=== PATIENT | female | born 1965 | race African-American/Black ===

== ENCOUNTER 2017-06-28 08:11 | Emergency (ER) | payer BC ==
[2017-06-28 08:19] VITALS: BP 133/85; PULSE 84; TEMP 98.6; BMI 30.2
[2017-06-28] MEDS ORDERED: KETOROLAC TROMETHAMINE 60 MG/2 ML VIAL IM ONE (08:55)
--- NOTE | 2017-06-28 08:55 | PDOC ---
History of Present Illness - General Chief Complaint: Pain Stated Complaint: LOWER BACK PAIN Time Seen by Provider: 06/28/17 08:33 History Source: Patient Exam Limitations: No Limitations - History of Present Illness Initial Comments: 06/28/17 17:08 Here with progressive worsening of thoracic pain. States had a severe fall with multiple spinal and cervical spine problems 3-4 years ago which has left her on disability. States thoracic pain and feels is primarily musculature has progressively worsened over the past few days. Has taken no medication for relief, is not involved with pain management although see his physician who is prescribed antispasmodics and anti-inflammatories. Patient is reluctant to take narcotics as she feels they make her very sick to her stomach and dizzy. Denies any recent injury, denies any heavy lifting or strenuous activity, denies any fever or URI or any other illness recently. Has not spoken to her doctor about this worsened pain. Occurred: reports: other (over 4 years ) Severity: reports: mild, moderate Method of Injury: Yes: unknown, fall Modifying Factors: improves with: pain medication Loss of Consciousness: no loss of consciousness Associated Symptoms (Fall): denies symptoms Past History - Travel Traveled outside of the country in the last 30 days: No Close contact w/someone who was outside of country & ill: No - Past Medical History Allergies/Adverse Reactions: Allergies Allergy/AdvReac Type Severity Reaction Status Date / Time No Known Allergies Allergy Verified 06/28/17 08:19 Home Medications: Ambulatory Orders Metformin HCl [Glucophage] 1,000 mg PO BID 07/09/12 Lisinopril [Prinivil] 5 mg PO DAILY 06/18/13 Simvastatin [Zocor -] 40 mg PO HS 06/18/13 Azithromycin [Zithromax Z-ROBERTA (5 DAYS) -] 250 mg PO ASDIR #6 tablet 09/17/15 Benzonatate [Tessalon Pearls -] 100 mg PO TID PRN #12 capsule 09/17/15 Glyburide [Diabeta] 10 mg PO BID 09/17/15 Diabetes: Yes (TYPE 2) Hypercholesterolemia: Yes - Immunization History Immunization Up to Date: Yes - Psycho/Social/Smoking Cessation Hx Anxiety: No Suicidal Ideation: No Smoking Status: No Smoking History: Never smoked Number of Cigarettes Smoked Daily: 0 Cigars Per Day: 0 Hx Alcohol Use: No Drug/Substance Use Hx: No Substance Use Type: None Trauma Specific PMHX - Complaint Specific PMHX Back Injury: Yes Neck Injury: Yes Review of Systems - Review of Systems Able to Perform ROS?: Yes Is the patient limited Sami proficient: Yes Constitutional: Yes: Symptoms Reported, See HPI, Malaise HEENTM: Yes: Symptoms Reported Respiratory: Yes: See HPI. No: Symptoms reported Cardiac (ROS): No: Symptoms Reported ABD/GI: No: Symptoms Reported Musculoskeletal: Yes: Symptoms Reported, See HPI, Back Pain, Muscle Pain, Muscle Weakness Integumentary: No: Symptoms Reported Neurological: Yes: See HPI All Other Systems: Reviewed and Negative *Physical Exam - Vital Signs Last Vital Signs Temp Pulse Resp BP Pulse Ox 98.6 F 84 20 133/85 100 06/28/17 08:16 06/28/17 08:16 06/28/17 08:16 06/28/17 08:16 06/28/17 08:16 - Physical Exam General Appearance: Yes: Nourished, Appropriately Dressed, Apparent Distress, Mild Distress HEENT: positive: GIOVANNI, Normal ENT Inspection, TMs Normal Neck: positive: Tender, Supple Respiratory/Chest: positive: Lungs Clear Gastrointestinal/Abdominal: positive: Soft. negative: Tender Musculoskeletal: positive: Normal Inspection, Decreased Range of Motion. negative: CVA Tenderness, Muscle Spasm (tight tense muscle groups to left flank and paravertebral spine muscles of left side ), Vertebral Tenderness Extremity: positive: Normal Capillary Refill, Normal Inspection, Tender. negative: Normal Range of Motion Integumentary: positive: Normal Color, Dry, Warm, Pale Neurologic: positive: product expert II-XII NML intact, Fully Oriented, Alert, Normal Mood/ Affect, Normal Response, Motor Strength 5/5 Progress Note - Progress Note Progress Note: Chronic muscle strain/ spasm- will have continue Robaxin and Naprosyn as is helpful to pain. F/U with PMD/ possible PT *DC/Admit/Observation/Transfer Diagnosis at time of Disposition: Muscle ache - Discharge Dispostion Disposition: HOME Condition at time of disposition: Stable Admit: No - Referrals Referrals: Ivonne Thomas MD [Primary Care Provider] - - Patient Instructions Printed Discharge Instructions: DI for Back Strain or Sprain Additional Instructions: Rest, no heavy lifting or exercise until pain is resolved Hot soaks to neck and low back as often as possible/hot showers or Jacuzzis No massage or therapy until spasm is gone Then may explore alternative measures for pain relief including massage, acupuncture, acupressure, yoga, or physical therapies Continue Naprosyn 500 mg every 8 hours as needed for pain Continue Robaxin every 8 hours as needed for spasm If not significant improvement within 24 hours with medication and rest regime, followup with private physician for change in medications and /or therapy.
[2017-06-28] MEDS ORDERED: KETOROLAC TROMETHAMINE 60 MG/2 ML VIAL ONE (09:03)
== END 2017-06-28 09:23 | disposition home or self-care (01) ==
LOC: JERFT 08:11 → JER 08:11 → JERFT 09:23
PROC: 3E0233Z Introduction of Anti-inflammatory into Muscle, Percutaneous Approach (ICD-10-PCS; principal; 2017-06-28)
DX: M62.830 Muscle spasm of back (principal); G89.29 Other chronic pain; I10 Essential (primary) hypertension; Z79.84 Long term (current) use of oral hypoglycemic drugs; E78.00 Pure hypercholesterolemia, unspecified
CPT/HCPCS: 99281-25

== ENCOUNTER 2018-08-29 08:40 | Emergency (ER) | payer BC ==
[2018-08-29 08:44] VITALS: BP 149/74; PULSE 69; TEMP 98.3; BMI 29.7
[2018-08-29] MEDS ORDERED: KETOROLAC TROMETHAMINE 60 MG/2 ML VIAL IM ONE (09:13)
[2018-08-29] MEDS ORDERED: CYCLOBENZAPRINE HCL 10 MG TABLET (FP) PO ONE (09:13)
[2018-08-29] MEDS ORDERED: CYCLOBENZAPRINE HCL 10 MG TABLET (FP) ONE (09:23)
[2018-08-29] MEDS ORDERED: KETOROLAC TROMETHAMINE 60 MG/2 ML VIAL ONE (09:23)
--- NOTE | 2018-08-29 09:51 | PDOC ---
History of Present Illness - General Chief Complaint: Back Pain Stated Complaint: PAIN ON LT SIDE OF BODY Time Seen by Provider: 08/29/18 08:59 History Source: Patient Exam Limitations: Clinical Condition - History of Present Illness Initial Comments: 08/29/18 09:46 Patient with usual chronic back pains present with complaint of left lower back pain which has been worse in the past 4 days. Patient has been having back pain for 2 years and being managed by PCP with NSAIDs and muscle relaxant. Patient reports history of multiple falls in the past condescending herniated disc but has not been seen by a neurologist and only being managed by PCP. patient stopped taking naproxen because she report was affected her stomach and hasnt taken any NSAIDS for over 8 months Timing/Duration: getting worse Past History - Past Medical History Allergies/Adverse Reactions: Allergies Allergy/AdvReac Type Severity Reaction Status Date / Time No Known Allergies Allergy Verified 08/29/18 08:44 Home Medications: Ambulatory Orders metFORMIN HCL [Glucophage] 1,000 mg PO BID 07/09/12 Lisinopril [Prinivil] 5 mg PO DAILY 06/18/13 Simvastatin [Zocor -] 40 mg PO HS 06/18/13 Glyburide [Diabeta] 10 mg PO BID 09/17/15 Ketorolac Tromethamine [Toradol -] 10 mg PO TID PRN #21 tablet 08/29/18 Methocarbamol [Robaxin -] 500 mg PO TID PRN #21 tablet 08/29/18 COPD: No Diabetes: Yes (TYPE 2) Hypercholesterolemia: Yes Other medical history: chronic back problems, shoulder pain left side - Immunization History Immunization Up to Date: Yes - Suicide/Smoking/Psychosocial Hx Smoking Status: No Smoking History: Never smoked Number of Cigarettes Smoked Daily: 0 Cigars Per Day: 0 Hx Alcohol Use: No Drug/Substance Use Hx: No Substance Use Type: None Review of Systems - Review of Systems Able to Perform ROS?: Yes Is the patient limited Chinese proficient: No Constitutional: No: Weakness Respiratory: No: Symptoms reported Cardiac (ROS): No: Symptoms Reported ABD/GI: No: Symptoms Reported Musculoskeletal: Yes: See HPI, Back Pain (left lower back pain), Muscle Pain ( left lower back pain). No: Muscle Weakness All Other Systems: Reviewed and Negative *Physical Exam - Vital Signs Last Vital Signs Temp Pulse Resp BP Pulse Ox 98.3 F 69 18 149/74 100 08/29/18 08:42 08/29/18 08:42 08/29/18 08:42 08/29/18 08:42 08/29/18 08:42 - Physical Exam Comments: 08/29/18 09:52 GENERAL: Well developed, well nourished. Awake and alert. No acute distress. CARDIOVASCULAR: Regular rate and rhythm. No murmurs, rubs, or gallops. PULMONARY: No evidence of respiratory distress. Lungs clear to auscultation bilaterally. No wheezing, rales or rhonchi. ABDOMINAL: Soft. Non-tender. Non-distended. No rebound or guarding. No organomegaly. Normoactive bowel sounds MUSCULOSKELETAL : moderate tenderness over posterior paravertebral muscle on left lumbar spine. No bony deformities EXTREMITIES: No cyanosis. No clubbing. No edema. No calf tenderness. SKIN: Warm and dry. Normal capillary refill. No rashes. No jaundice. NEUROLOGICAL: Alert, awake, appropriate. No motor deficits in the lower extremities. Gait is normal without ataxia. PSYCHIATRIC: Cooperative. Good eye contact. Appropriate mood and affect. General Appearance: Yes: Nourished, Appropriately Dressed, Mild Distress ED Treatment Course - RADIOLOGY Radiology Studies Ordered: Category Date Time Status SPINE-LUMBAR SACRAL [RAD] Stat Radiology 08/29/18 09:12 Taken - Medications Given in the ED: ED Medications Discontinued Medications Generic Name Dose Route Start Last Admin Trade Name Freq PRN Reason Stop Dose Admin Cyclobenzaprine HCl 5 mg 08/29/18 09:13 08/29/18 09:38 Flexeril - PO 08/29/18 09:14 5 mg ONCE ONE Administration Ketorolac Tromethamine 60 mg 08/29/18 09:13 08/29/18 09:38 Toradol Injection - IM 08/29/18 09:14 60 mg ONCE ONE Administration Medical Decision Making - Medical Decision Making 08/29/18 09:53 Patient with history of chronic lower back pains presented with complaint of left lower back pain worsening in the last 4 days with any new trauma or injury. Toradol 60mg IM and cyclobenzaprine 5mg PO given for pain. x-ray of lumbosacral ordered 08/29/18 10:03 x-rays of lumbaosacral shows no acute pathology. Patient stable for discharge on NSAIDS and muscle relaxer with orthopedics and neurosurgery follow-up *DC/Admit/Observation/Transfer Diagnosis at time of Disposition: Lumbago Qualifiers: Chronicity: chronic Back pain laterality: left Sciatica presence: without sciatica Qualified Code(s): M54.5 - Low back pain; G89.29 - Other chronic pain - Discharge Dispostion Disposition: HOME Condition at time of disposition: Stable Decision to Admit order: No - Prescriptions Prescriptions: Ketorolac Tromethamine [Toradol -] 10 mg PO TID PRN #21 tablet PRN Reason: Back Pain Methocarbamol [Robaxin -] 500 mg PO TID PRN #21 tablet PRN Reason: Back Pain - Referrals Referrals: Gregory Sánchez MD, [facility] [Staff Physician] - Charla Camilo MD [Non Staff, Medical] - - Patient Instructions Printed Discharge Instructions: Managing Chronic Low Back Pain Additional Instructions: Your x-ray was negative. Follow-up referred neurology Dr. Armenta for chronic back pain. Follow referred physical therapist for back physical therapy - Post Discharge Activity
== END 2018-08-29 10:20 | disposition home or self-care (01) ==
LOC: JERFT 08:40
PROC: 3E0233Z Introduction of Anti-inflammatory into Muscle, Percutaneous Approach (ICD-10-PCS; principal; 2018-08-29)
DX: M54.5 Low back pain (principal); G89.29 Other chronic pain; E11.9 Type 2 diabetes mellitus without complications; Z79.84 Long term (current) use of oral hypoglycemic drugs; E78.00 Pure hypercholesterolemia, unspecified
CPT/HCPCS: 72100-TC-FY; 99281-25

== ENCOUNTER 2019-10-29 08:03 | Emergency (ER) | payer BC ==
[2019-10-29 08:11] VITALS: BP 132/80; PULSE 82; TEMP 98.1; BMI 29.9
[2019-10-29] MEDS ORDERED: ALBUTEROL SO4 2.5/IPRATROPIUM 0.5 INH SOL 3 ML VIAL.NEB. NEB ONE ×3 (08:29→08:31)
--- NOTE | 2019-10-29 08:32 | PDOC ---
History of Present Illness - General Chief Complaint: Cold Symptoms Stated Complaint: COUGHING Time Seen by Provider: 10/29/19 08:10 - History of Present Illness Initial Comments: 10/29/19 08:30 CHIEF COMPLAINT: cough HISTORY OF PRESENT ILLNESS: 54 yo F with hx of IDDM presents to [facility] with cough x 9 days. Patient reports that she has taken azithromycin (completed yesterday) and robitussin prescribed by her PCP Dr. Kathy Tavares without relief. Patient states she had a slight fever at her PCP office and that she has been nauseous, but denies any vomiting or diarrhea. No recent travel or sick contacts. PAST MEDICAL HISTORY: Denies past medical history FAMILY HISTORY: Denies SOCIAL HISTORY: Denies tobacco, alcohol, illicit drug use. SURGICAL HISTORY: Denies ALLERGIES: No known drug allergies REVIEW OF SYSTEMS General/Constitutional: Fever. Denies weakness, weight change. HEENT: Denies change in vision. Denies ear pain or discharge. Denies sore throat. Cardiovascular: Denies chest pain or shortness of breath. Respiratory: Cough x 9 days. Gastrointestinal: Denies nausea, vomiting, diarrhea or constipation. Denies rectal bleeding. Genitourinary: Denies dysuria, frequency, or change in urination. Musculoskeletal: Denies joint or muscle swelling or pain. Denies neck or back pain. Skin and breasts: Denies rash or easy bruising. Neurologic: Denies headache, vertigo, loss of consciousness, or loss of sensation. Psychiatric: Denies depression or anxiety. PHYSICAL EXAM General Appearance: Well-appearing, appropriately dressed. No apparent distress. HEENT: EOMI, PERRLA, normal ENT inspection, normal voice, TMs normal, pharynx normal. No conjunctival pallor. No photophobia, scleral icterus. Neck: Supple. Trachea midline. No tenderness, rigidity, carotid bruit, stridor , lymphadenopathy, or thyromegaly. Respiratory/Chest: Acute bronchospasm. No shortness of breath, chest tenderness , respiratory distress, accessory muscle use. No crackles, rales, rhonchi, stridor, wheezing, dullness Cardiovascular: RRR. S1, S2. No JVD, murmur, bradycardia, tachycardia. Vascular Pulses: Dorsalis-Pedis (R): 2+, Dorsalis-Pedis (L): 2+ Gastrointestinal/Abdominal: Normal bowel sounds. Abdomen soft, non-distended. No tenderness or rebound tenderness. No organomegaly, pulsatile mass, guarding , hernia, hepatomegaly, splenomegaly. Musculoskeletal/Extremities: Normal inspection. FROM of all extremities, normal capillary refill. Pelvis Stable. No CVA tenderness. No tenderness to extremities, pedal edema, swelling, erythema or deformity. Integumentary: Appropriate color, dry, warm. No cyanosis, erythema, jaundice or rash Neurologic: conservator artifacts II-XII intact. Fully oriented, alert. Appropriate mood/affect. Motor strength 5/5. No appreciable EOM palsy, facial droop or sensory deficit. Past History - Past Medical History Allergies/Adverse Reactions: Allergies Allergy/AdvReac Type Severity Reaction Status Date / Time No Known Allergies Allergy Verified 08/29/18 08:44 Home Medications: Ambulatory Orders metFORMIN HCL [Glucophage] 1,000 mg PO BID 07/09/12 Glyburide [Diabeta] 10 mg PO BID 09/17/15 Albuterol Sulfate Inhaler - [Ventolin HFA Inhaler -] 1 - 2 inh PO Q6H PRN #1 inhaler 10/29/19 Benzonatate [Tessalon Pearls -] 100 mg PO TID #21 capsule 10/29/19 Cyclobenzaprine HCl 10 mg PO HS 10/29/19 Nateglinide 120 mg PO TID 10/29/19 predniSONE [Deltasone -] 40 mg PO DAILY #8 tablet 10/29/19 COPD: No Diabetes: Yes (TYPE 2) Hypercholesterolemia: Yes - Immunization History Immunization Up to Date: Yes - Psycho Social/Smoking Cessation Hx Smoking Status: No Smoking History: Never smoked Have you smoked in the past 12 months: No Number of Cigarettes Smoked Daily: 0 Cigars Per Day: 0 Information on smoking cessation initiated: No Hx Alcohol Use: No Drug/Substance Use Hx: No Substance Use Type: None *Physical Exam - Vital Signs Last Vital Signs Temp Pulse Resp BP Pulse Ox 98.1 F 82 18 132/80 97 10/29/19 08:07 10/29/19 08:07 10/29/19 08:07 10/29/19 08:07 10/29/19 08:07 Medical Decision Making - Medical Decision Making 10/29/19 08:32 54 yo F with hx of IDDM presents to [facility] with cough x 9 days. -CXR -Duoneb -prednisone - albuterol inhaler, tessalon perles, and prednisone rx sent to pharm Advised patient to take medication as prescribed and follow up with PCP within the next week. Advised patient of signs and symptoms for return to ED. Patient verbalized understanding and agrees to plan. Discharge - Discharge Information Problems reviewed: Yes Clinical Impression/Diagnosis: Bronchitis Condition: Stable Disposition: HOME - Admission No - Additional Discharge Information Prescriptions: Albuterol Sulfate Inhaler - [Ventolin HFA Inhaler -] 1 - 2 inh PO Q6H PRN #1 inhaler PRN Reason: cough/wheezing Benzonatate [Tessalon Pearls -] 100 mg PO TID #21 capsule predniSONE [Deltasone -] 40 mg PO DAILY #8 tablet - Follow up/Referral Referrals: Cassie Tavares DO [Primary Care Provider] - - Patient Discharge Instructions Patient Printed Discharge Instructions: DI for Acute Bronchitis Additional Instructions: Please take medications as prescribed. Follow-up with your primary care doctor in 5 days for continued monitoring of your symptoms. If you develop any new or worsening symptoms, such as persistent fever, vomiting, diarrhea, or any new or worsening symptoms, please return to the ER. - Post Discharge Activity Work/Back to School Note: Back to Work
[2019-10-29] MEDS ORDERED: predniSONE 20 MG TABLET (UD) PO ONE (08:34)
[2019-10-29] MEDS ORDERED: predniSONE 20 MG TABLET (UD) ONE (08:36)
== END 2019-10-29 10:00 | disposition home or self-care (01) ==
LOC: JERFT 08:03
DX: J40 Bronchitis, not specified as acute or chronic (principal); E11.9 Type 2 diabetes mellitus without complications; Z79.84 Long term (current) use of oral hypoglycemic drugs; E78.00 Pure hypercholesterolemia, unspecified
CPT/HCPCS: 71046-TC-FY; 87804; 99281-25

== ENCOUNTER 2021-10-21 09:44 | Emergency (ER) | payer BC ==
[2021-10-21 10:09] VITALS: BP 118/71; PULSE 103; TEMP 98.2; BMI 27.4
[2021-10-22 11:07] LABS: SARS-CoV-2 NAA Detected (Not Detected)
== END 2021-10-21 11:52 | disposition home or self-care (01) ==
LOC: JER 09:44
DX: U07.1 COVID-19 (principal)
CPT/HCPCS: 99283-25; C9803; U0003; U0005

== ENCOUNTER 2022-04-10 07:22 | Emergency (ER) | payer BC ==
[2022-04-10 07:29] VITALS: BP 135/83; PULSE 73; TEMP 98.4; BMI 28.3
[2022-04-10] MEDS ORDERED: ACETAMINOPHEN 500 MG TABLET (FP) PO ONE (08:21)
[2022-04-10] MEDS ORDERED: LIDOCAINE 5% TOPICAL PATCH TP ONE (08:32)
[2022-04-10] MEDS ORDERED: ACETAMINOPHEN 325 MG TABLET (FP) ONE (08:32)
[2022-04-10] MEDS ORDERED: diazePAM 5 MG TABLET PO ONE (08:38)
[2022-04-10] MEDS ORDERED: LIDOCAINE 5% TOPICAL PATCH ONE (08:44)
[2022-04-10] MEDS ORDERED: diazePAM 5 MG TABLET ONE (08:44)
[2022-04-10] MEDS ORDERED: KETOROLAC TROMETHAMINE 15 MG/ML VIAL IM ONE (10:33)
[2022-04-10] MEDS ORDERED: KETOROLAC TROMETHAMINE 15 MG/ML VIAL ONE (11:12)
[2022-04-10] MEDS ORDERED: LIDOCAINE PATCH REMOVAL MC SCH (22:00)
== END 2022-04-10 12:35 | disposition home or self-care (01) ==
LOC: JER 07:22
PROC: 3E0233Z Introduction of Anti-inflammatory into Muscle, Percutaneous Approach (ICD-10-PCS; principal; 2022-04-10)
DX: S16.1XXA Strain of muscle, fascia and tendon at neck level, initial encounter (principal); W01.0XXA Fall on same level from slipping, tripping and stumbling without subsequent striking against object, initial encounter
CPT/HCPCS: 93005; 93010; 99284-25

== ENCOUNTER 2023-05-03 09:59 | Emergency (ER) | payer BC ==
[2023-05-03 10:07] VITALS: BP 115/69; PULSE 94; RESP 18; TEMP 98.2; BMI 27.4
[2023-05-03] MEDS ORDERED: ALBUTEROL SO4 2.5/IPRATROPIUM 0.5 INH SOL 3 ML VIAL.NEB. NEB ONE ×2 (10:37→10:46)
[2023-05-03] MEDS ORDERED: BENZONATATE 200 MG CAPSULE PO PRN (11:37)
[2023-05-03] MEDS ORDERED: BENZONATATE 200 MG CAPSULE PO ONE (12:01)
== END 2023-05-03 13:13 | disposition home or self-care (01) ==
LOC: JER 09:59
PROC: 3E0F7GC Introduction of Other Therapeutic Substance into Respiratory Tract, Via Natural or Artificial Opening (ICD-10-PCS; principal; 2023-05-03)
DX: R05.9 Cough, unspecified (principal)
CPT/HCPCS: 26055; 71046-TC-FY; 99283-25

== ENCOUNTER 2023-09-25 15:55 | Emergency (ER) | payer BC ==
[2023-09-25 16:06] VITALS: BMI 28.1
[2023-09-25 17:35] VITALS: BP 120/77; PULSE 85; RESP 19; TEMP 98.8
== END 2023-09-25 17:59 | disposition home or self-care (01) ==
LOC: JERFT 15:55
DX: R05.9 Cough, unspecified (principal); R07.89 Other chest pain; Z20.822 Contact with and (suspected) exposure to COVID-19
CPT/HCPCS: 0241U-QW; 71046-TC-FY; 99284-25

== ENCOUNTER 2023-10-10 13:48 | Emergency (ER) | payer BC ==
[2023-10-10 13:55] VITALS: BP 145/68; PULSE 90; RESP 18; TEMP 97.7; BMI 28.1
[2023-10-10] MEDS ORDERED: ALBUTEROL SO4 2.5/IPRATROPIUM 0.5 INH SOL 3 ML VIAL.NEB. NEB ONE (14:58)
[2023-10-10] MEDS: ALBUTEROL SO4 2.5/IPRATROPIUM 0.5 INH SOL 3 ML VIAL.NEB. NEB SCH ×3 (15:01→15:57)
== END 2023-10-10 16:20 | disposition home or self-care (01) ==
LOC: JER 13:48 → JERFT 13:48
PROC: 3E0F7GC Introduction of Other Therapeutic Substance into Respiratory Tract, Via Natural or Artificial Opening (ICD-10-PCS; principal; 2023-10-10)
DX: R05.9 Cough, unspecified (principal); R07.81 Pleurodynia; J20.9 Acute bronchitis, unspecified
CPT/HCPCS: 71046-TC-FY; 82962; 99284-25